=== PATIENT | female | born 1940 | race Caucasian/White ===

== ENCOUNTER → 2023-08-12 13:14 | Outpatient (REF) | payer MEDICARE, OTHER, SELFPAY | LOC: MRI 13:14 | PROVIDERS: ATTENDING PHYSICIAN Orthopaedic Surgery; FAMILY PHYSICIAN Nurse Practitioner Adult Health | DX: M54.16 Radiculopathy, lumbar region (principal) | CPT/HCPCS: 72148 ==

== ENCOUNTER → 2024-08-09 11:49 | Outpatient (REF) | payer MEDICARE, OTHER, SELFPAY | LOC: WDC 11:49 | PROVIDERS: ATTENDING PHYSICIAN Physician Assistant | DX: Z12.31 Encounter for screening mammogram for malignant neoplasm of breast (principal) | CPT/HCPCS: 77063; 77067 ==

== ENCOUNTER → 2025-02-26 13:10 | Outpatient (REF) | payer MEDICARE, OTHER, SELFPAY | LOC: EMG 13:10 | PROVIDERS: ATTENDING PHYSICIAN Physician Assistant Medical | DX: I50.9 Heart failure, unspecified (principal); R20.2 Paresthesia of skin; R20.0 Anesthesia of skin | CPT/HCPCS: 95886; 95911 ==